=== PATIENT | male | born 1975 ===

== ENCOUNTER 2021-01-10 15:24 | Outpatient (CLI) | payer OTHER, SELFPAY ==
--- NOTE | 2021-01-13 11:55 | ONC FU_ITS ---
Dr. Srinivasan Patient Follow-Up Note Patient: Manas Wells Unit #: [id number]: [id number] Dicatated By: Mao Srinivasan M.D.Date of Visit:Jan 10, 2021 Onc Med Follow-up/Prog Note Chief Complaint: Colon cancer. History of Present Illness: This is a 45 year-old man with moderately differentiated adenocarcinoma of the colon, stage IIIC (pT3, pN2b, M0). He had presented initially with left-sided abdominal pain and suspected malignancy at the splenic flexure on colonoscopy. He underwent partial colon resection on 09/10/2012. He was given adjuvant chemotherapy with modified FOLFOX. He experienced significant toxicity with his first cycle of treatment, but he tolerated the remainder of his treatment well with a reduced dose of oxaliplatin. As of 03/17/2013 he completed 12 cycles of chemotherapy. On 03/25/2013 he had a complete colonoscopy to the cecum with no abnormal findings. At that time he also underwent removal of the Port-A-Cath venous access device. He was then followed expectantly. I had last seen him in May 2016. He was having some pain in his neck and upper back, but he was otherwise doing well clinically. There is no evidence of recurrence of his colon cancer. He then failed to return for further follow-up. He had recently seen Dr. Ham Guan in [place], [place] for his primary care. He apparently was found to have hypertension and his laboratory studies reportedly showed hyperlipidemia and prediabetes. He is seen now for a follow-up visit. He still has pretty good energy and he has normal activity. ECOG score is 0. His appetite has been okay. He has gained weight since he was last seen here, in the range of 12 pounds, though he currently is down at least 15 pounds from his maximum weight. He does not have fever or night sweats. His mouth has been sore following some recent dental extractions. He has not had sore throat or difficulty swallowing. He does not complain of shortness of breath, cough, or chest pain. He occasionally has nausea. He says his bowel function has been fine. He does complain of decreased urine flow. He has been having pain in his lower back radiating down his right leg. He is also had pain in his left elbow and forearm. He says his neck has not been too bad. He does not complain of headache. He sometimes has dizziness and he sometimes has numbness/tingling. Medications: He has not yet started on any prescription medication. Allergies: Reglan Vital Signs: Performed on Jan 10, 2021 16:03 Height - 72.00 in Weight - 204.6 lbs (HIGH) BSA - 2.15 sq.m BMI - 27.75 Temperature - 98.1 F (LOW) Pulse - 94 /min Respiration - 18 /min BP - 136/89 mm(hg) O2 Sat - 97 % Pain - 3 Fatigue - 0 Physical Examination: Constitutional - He looks good generally, Eyes - Sclerae nonicteric. Conjunctivae clear, ENMT - No lesions noted in the oral cavity, Hematologic/Lymphatic - No cervical, clavicular, or axillary adenopathy, Respiratory - Lungs are clear with good air movement bilaterally, Cardiovascular - Heart rhythm is regular. There is no murmur, gallop, or rub noted, Abdomen - Soft. Liver and spleen are not enlarged. There is no abdominal mass or ascites noted and there is no inguinal adenopathy, Extremities - There is mild erythema in the lower anterior tibial area on the left and there is also some slight soft tissue swelling. There is otherwise no edema. Calf circumference is symmetric, Neurologic - No focal neurologic deficits noted. Problem List: 1. Moderately differentiated adenocarcinoma of the colon, stage IIIC. He underwent exploratory laparotomy with partial colectomy on 09/10/2012. 2. He had persistent elevation of liver enzymes following adjuvant chemotherapy, and he was confirmed to have positive serology for hepatitis C in May 2013. A quantitative hepatis C RNA in November 2013 was undetectable, and the liver enzymes at that point had normalized. 3. Hypertension. 4. Hyperlipidemia. Problems Addressed with this Encounter and Plan: 1. Patient with moderately differentiated adenocarcinoma of the colon, stage IIIC. He underwent exploratory laparotomy with partial colectomy on 09/10/2012. He was given adjuvant chemotherapy with 12 cycles of modified FOLFOX, completed in March 2013. He required a reduced dosage of oxaliplatin because of neurotoxicity. He otherwise tolerated treatment well. He was then followed on expectant management. He underwent surveillance colonoscopy and removal of his Port-A-Cath venous access device in March 2013. He has had no further surveillance colonoscopy and his last follow-up visit for the colon cancer was in May 2016. I will contact Dr. Guan's office and see if we get a CEA level with his next lab draw there. At this interval from his treatment, I do not think any routine CT imaging is necessary, but he does need a surveillance colonoscopy, and I will see if I get that arranged with Dr. Fish. In the absence of any evidence of recurrence of his colon cancer, I can just see him again as needed. 2. He has mild swelling and erythema in the left anterior tibial area. This may be early cellulitis, as clinically there does not appear to be any evidence of thromboembolism. As such, he will be given a prescription for Augmentin 875 mg twice daily for 7 days. He will have further evaluation as indicated. Signed By: Mao Srinivasan M.D. <<Signature on File>>
== END 2021-01-10 15:25 | disposition home or self-care (01) ==
LOC: ONCMED 15:35
PROVIDERS: PCP Family Medicine Sports Medicine; Visit Provider Internal Medicine Medical Oncology
DX: Z08 Encounter for follow-up examination after completed treatment for malignant neoplasm (principal); I10 Essential (primary) hypertension; E78.5 Hyperlipidemia, unspecified; Z92.21 Personal history of antineoplastic chemotherapy; Z90.49 Acquired absence of other specified parts of digestive tract
CPT/HCPCS: 99214

== ENCOUNTER 2025-04-18 16:00 | Oncology outpatient (recurring) (ONCR) | payer OTHER, SELFPAY ==
[2025-04-18 17:00] LABS: Hematocrit 43.7 % (37-53); Hemoglobin 15.00 g/dL (11.27-16.99); Mean Corpuscular HGB Conc 34.3 g/dL (30-55); Mean Corpuscular Hemoglobin 31.8 pg (27-33); Mean Corpuscular Volume 92.6 fl (82-101); Nucleated Red Blood Cells % 0 %; Platelet Count 308 10^3/cmm (157-399); Red Blood Count 4.72 10^6/uL (3.85-5.65); White Blood Count 8.89 10^3/uL (3.29-11.43)
[2025-04-18 17:15] LABS: Alanine Aminotransferase 41 U/L (0-41); Albumin Level 4.6 g/dL (3.5-5.2); Alkaline Phosphatase 79 U/L (40-130); Blood Urea Nitrogen 15 mg/dL (6-20); Calcium 9.7 mg/dL (8.5-10.5); Carbon Dioxide 23 mmol/L (22-29); Chloride 103 mmol/L (98-107); Creatinine Clr Calc Pharmacy 132.0006; Globulin 3.0 g/dL (1.3-4.6); Glucose 106 mg/dL (65-115); Osmolality Calculated 283 mOsm/kg (285-295); Sodium 136 mmol/L (136-145); Total Protein 7.6 g/dL (6.6-8.7)
[2025-04-18 17:28] LABS: Anion Gap 13.6 (5-19); Aspartate Amino Transferase 41 U/L (0-40); Potassium 3.6 mmol/L (3.5-5.1)
[2025-04-18 19:58] LABS: Carcinoembryonic Antigen 4.4 ng/mL (0.0-4.7)
== END 2025-05-10 23:59 | disposition home or self-care (01) ==
LOC: ONCMED 16:01
PROVIDERS: PCP Family Medicine Sports Medicine; Visit Provider Internal Medicine Medical Oncology
DX: Z85.038 Personal history of other malignant neoplasm of large intestine (principal)
CPT/HCPCS: 36415; 80053; 82378; 85025

== ENCOUNTER 2025-08-02 06:13 | Day surgery (SDC) | payer OTHER, SELFPAY ==
[2025-08-02 06:28] VITALS: BP 149/89; PULSE 80; RESP 18; TEMP 36.1; O2SAT 97; BMI 29.1
--- NOTE | 2025-08-02 06:53 | ANES.PREANE2 ---
Pre-Anesthetic Assessment Height/Weight: Height 1.83 m Weight 97.522 kg Temp Pulse Resp BP Pulse Ox O2 Del Method 97 F L 80 18 149/89 97 Room Air 08/02/25 06:28 08/02/25 06:28 08/02/25 06:28 08/02/25 06:28 08/02/25 06:28 08/02/25 06:28 Preop Diagnosis: hx colon cancer Operation Date: 08/02/25 07:30 Proposed Procedures p Colonoscopy 39344 G0121 Z12.11(Not Applicable) - Manish Parra MD Was Beta Krissy taken within 24 hours: N/A Was Clonidine taken within 24 hours: N/A Last intake: Intake Last Liquid Date 08/01/25 Last Liquid Time 20:00 Last Solid Date 08/01/25 Last Solid Time 04:30 Social No alcohol chews Exam alert, oriented x 3, clear to auscultation bilaterally and regular rate & rhythm Airway Submandibular: within normal limits Cervical ROM: within normal limits Mallampati: Class II Comments: Comments: upper and lower dentures already removed History/ROS No significant history except as noted Pulmonary None reported CV/HEM None reported None reported Hepatic None reported GI hx colon cancer Metabolic None reported Musc/skel None reported Neuropsych None reported Anesthetic Plan ASA status: 2 Anesthesia: Anesthesia Evaluation and MAC Risk of > 500 ml blood loss (7ml/kg in children): No Medications/Allergies Home Medications ?Medication ?Instructions ?Recorded ?Confirmed ?Last Taken ?Type No Known Home Medications 05/02/25 07/27/25 Unknown History Allergies Allergy/AdvReac Type Severity Reaction Status Date / Time No Known Allergies Allergy Verified 07/27/25 08:09 Current Medications Generic Name Dose Route Start Last Admin Trade Name Freq PRN Reason Stop Dose Admin Sodium Chloride 1,000 mls @ 15 mls/hr 08/02/25 06:04 08/02/25 06:33 Sodium Chloride 0.9% IV 08/03/25 06:03 15 mls/hr .Q24H PRN Administration COLONOSCOPY FLUIDS PFSH Anesthesia Medical History Colon cancer Family History Grandfather Cancer Denies family history of Diabetes Social History Smoking and tobacco/nicotine status: tobacco/nicotine user, details unknown (smokeless tobacco/marijuana) Adopted: No Marital status: Number of children: 3 service: No
--- NOTE | 2025-08-02 07:15 | W.PM.OPSFHP ---
Same Day Surgery H&P Indication for Procedure/HPI DATE OF PROCEDURE: August 02, 2025 CHIEF COMPLAINT/INDICATIONFOR SURGICAL PROCEDURE: colon cancer PREOP DIAGNOSIS: hx colon cancer PLANNED PROCEDURE: Operation Date: 08/02/25 07:30 Proposed Procedures p Colonoscopy 43839 G0121 Z12.11(Not Applicable) - Manish Parra MD Medications/Allergies* Home Medications ?Medication ?Instructions ?Recorded ?Confirmed ?Type No Known Home Medications 05/02/25 07/27/25 History Allergies/Adverse Reactions Allergy/AdvReac Type Severity Reaction Status Date / Time No Known Allergies Allergy Verified 07/27/25 08:09 Current Medications: Generic Name Dose Route Start Last Admin Trade Name Freq PRN Reason Stop Dose Admin Sodium Chloride 1,000 mls @ 15 mls/hr 08/02/25 06:04 08/02/25 06:33 Sodium Chloride 0.9% IV 08/03/25 06:03 15 mls/hr .Q24H PRN Administration COLONOSCOPY FLUIDS Pertinent History/Comorbid Conditions* Medical History (Updated 04/18/25 @ 16:30 by Rajat Coronado MD) Colon cancer Family History (Updated 02/19/21 @ 13:24 by TIMMY Vincent) Cancer Grandfather Denies family history of Diabetes Social History Smoking and tobacco/nicotine status: tobacco/nicotine user, details unknown (smokeless tobacco/marijuana) Adopted: No Marital status: Number of children: 3 service: No Pertinent Exam Findings alert, oriented x 3, clear to auscultation bilaterally, regular rate & rhythm and procedure specific exam findings abdomen soft, nt, nd Recommendations Risks and benefits of procedure reviewed and Patient/family agree to proceed Surgery/Procedure today Coding Level of Care Code Acute Code for Chg Fwd
[2025-08-02 08:15] VITALS: BP 85/59; PULSE 86; RESP 16; TEMP 36.6; O2SAT 94
[2025-08-02 08:45] VITALS: BP 118/82; PULSE 72; RESP 18; TEMP 36.6; O2SAT 99
--- NOTE | 2025-08-02 09:02 | ANE.PACU2 ---
Inpatient post-anesthesia follow up: Airway intact: Yes Vital signs: Temperature 97.9 F Pulse Rate 72 Respiratory Rate 18 Blood Pressure 118/82 Pulse Oximetry 99 Oxygen Delivery Me thod Room Air Oxygen Flow Rate Fraction of Inspir ed Oxygen Hydration adequate: Yes Nausea and vomiting: No Pain level: 1 Mental status: Baseline
== END 2025-08-02 09:02 | disposition home or self-care (01) ==
PROVIDERS: PCP Family Medicine; Visit Provider Student in an Organized Health Care Education/Training Program
PROC: 0DJD8ZZ Inspection of Lower Intestinal Tract, Via Natural or Artificial Opening Endoscopic (ICD-10-PCS; CPT 45378; principal; 2025-08-02 07:30)
DX: Z85.038 Personal history of other malignant neoplasm of large intestine (principal); D12.0 Benign neoplasm of cecum; D12.8 Benign neoplasm of rectum; Z80.9 Family history of malignant neoplasm, unspecified; F17.220 Nicotine dependence, chewing tobacco, uncomplicated
CPT/HCPCS: 45380; 45385; 88305; J2704; J7030; J9999